=== PATIENT | female | born 1990 | race African-American/Black ===

== ENCOUNTER 2023-02-09 18:57 | Emergency (ER) | payer OTHER ==
[2023-02-09 19:22] LABS: BASOPHILS % (AUTO) 0.3 %; EOSINOPHILS # (AUTO) 0.7 10^3/uL (0.0-0.7); EOSINOPHILS % (AUTO) 11.4 %; HCT - HEMATOCRIT 34.4 % (37.0-47.0); LYMPHOCYTES % (AUTO) 46.2 %; MEAN CORPUSCULAR HEMOGLOBIN 27.5 pg (27.0-31.0); MONOCYTES # (AUTO) 0.4 10^3/uL (0.0-1.0); NEUTROPHILS # (AUTO) 2.3 10^3/uL (1.5-6.6); NEUTROPHILS % (AUTO) 36.1 %; PLT - PLATELET COUNT 559 10^3/uL (130-450); RED CELL DISTRIBUTION WIDTH 13.3 % (12.0-15.0); WHITE BLOOD COUNT 6.5 x10^3/uL (4.8-10.8)
[2023-02-09 19:29] LABS: BILIRUBIN,URINE NEGATIVE (NEGATIVE); GLUCOSE, URINE (UA) NEGATIVE (NEGATIVE); KETONES,URINE (UA) NEGATIVE (NEGATIVE); LEUKOCYTE ESTERASE, URINE NEGATIVE (NEGATIVE); NITRITE,URINE NEGATIVE (NEGATIVE); OCCULT BLOOD,URINE NEGATIVE (NEGATIVE); PROTEIN,URINE NEGATIVE (NEGATIVE); UROBILINOGEN,URINE 0.2 (NORMAL) E.U./dL (NORMAL)
[2023-02-09 19:31] LABS: CLARITY,URINE CLEAR (CLEAR); HCG UR QUAL NEGATIVE
[2023-02-09 19:36] LABS: ALBUMIN 4.2 g/dL (3.2-5.5); ALBUMIN/GLOBULIN RATIO 1.2 (1.0-2.2); BILIRUBIN,TOTAL 0.3 mg/dL (0.2-1.0); CALCIUM 9.6 mg/dL (8.5-10.3); CREATININE 0.9 mg/dL (0.6-1.3); POTASSIUM 3.5 mmol/L (3.5-4.5); TOTAL PROTEIN 7.6 g/dL (6.4-8.9)
[2023-02-09 20:49] VITALS: O2SAT 100
[2023-02-09] MEDS ORDERED: FAMOTIDINE 20 MG TABLET PO STA (21:00)
[2023-02-09] MEDS ORDERED: MAG HYDROX/AL HYDROX/SIMETH 30 ML UDC PO STA (21:00)
--- NOTE | 2023-02-09 21:01 | ED Physician Documentation ---
History of Present Illness - Stated complaint Stated Complaint: ABD PX/NAUSEA WHEN EATING - Chief complaint Chief Complaint: Abd Pain - History obtained from History obtained from: Patient - Additonal information Additional information: [id number] Previously healthy presents to the emergency department with left upper quadrant pain with associated nausea after eating for the past week that she describes as squeezing, gradual onset, waxing and waning in severity, improving with lying on her side and resting, worse with motion, without any other relieving factors. Patient had a green bowel movement today that was well formed and soft. Denies vomiting, diarrhea, urinary symptoms, fever, back pain.No past surgical history. Denies alcohol or heavy caffeine use. 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 - Present Medications Home Medications: Ambulatory Orders Medication Instructions Recorded Confirmed Famotidine [Pepcid] 20 mg PO BID PRN #30 tablet 02/09/23 - Allergies Allergies/Adverse Reactions: Allergies Allergy/AdvReac Type Severity Reaction Status Date / Time No Known Drug Allergies Allergy Verified 02/09/23 19:06 - Social History Does the pt smoke?: No Smoking Status: Never smoker Does the pt drink ETOH?: No Does the pt have substance abuse?: No - Immunizations Immunizations are current?: Yes - POLST Patient has POLST: No PD ED PE NORMAL - Vitals Vital signs reviewed: Yes - General General: Alert and oriented X 3, No acute distress, Well developed/nourished - HEENT HEENT: Atraumatic, PERRL, EOMI, Moist mucous membranes - Neck Neck: Supple, no meningeal sign - Cardiac Cardiac: RRR - Respiratory Respiratory: No respiratory distress, Clear bilaterally - Abdomen Abdomen: Non tender, Non distended, No organomegaly - Back Back: No CVA TTP - Derm Derm: Normal color, Warm and dry Results - Vitals Vitals: Vital Signs - 24 hr 02/09/23 02/09/23 19:02 20:46 Temperature 36.8 C Heart Rate 83 71 Respiratory 16 16 Rate Blood Pressure 149/116 H 136/71 H O2 Saturation 98 100 Oxygen O2 Source Room air - Labs Labs: Laboratory Tests 02/09/23 02/09/23 02/09/23 19:15 19:19 19:19 WBC 6.5 RBC 4.00 L Hgb 11.0 L Hct 34.4 L MCV 86.0 MCH 27.5 MCHC 32.0 RDW 13.3 Plt Count 559 H MPV 9.0 Neut # (Auto) 2.3 Lymph # (Auto) 3.0 Ray # (Auto) 0.4 Eos # (Auto) 0.7 Baso # (Auto) 0.0 Absolute Nucleated RBC 0.00 Nucleated RBC % 0.0 Sodium 136 Potassium 3.5 Chloride 103 Carbon Dioxide 28 Anion Gap 5.0 L BUN 10 Creatinine 0.9 Estimated GFR (MDRD) 72 L Glucose 104 Calcium 9.6 Total Bilirubin 0.3 AST 20 ALT 16 Alkaline Phosphatase 65 Total Protein 7.6 Albumin 4.2 Globulin 3.4 Albumin/Globulin Ratio 1.2 Lipase 48 Urine Color YELLOW Urine Clarity CLEAR Urine pH 6.0 Ur Specific [place] >=1.030 H Urine Protein NEGATIVE Urine Glucose (UA) NEGATIVE Urine Ketones NEGATIVE Urine Occult Blood NEGATIVE Urine Nitrite NEGATIVE Urine Bilirubin NEGATIVE Urine Urobilinogen 0.2 (NORMAL) Ur Leukocyte Esterase NEGATIVE Ur Microscopic Review NOT INDICATED Urine Culture Comments NOT INDICATED Urine HCG, Qual NEGATIVE PD Medical Decision Making - ED course ED course: 32-year-old woman presents to the emergency department with left upper abdominal pain after eating for the past week, likely stomach related. Lipase normal therefore not pancreatic. could also be intestinal upset but she is having normal BMs so volvulus/malro or diverticulitis unlikely. GI cocktail given with some relief. Pepcid sent to pharmacy. CBC, abdominal panel, urinalysis and hCG unremarkable aside from some anemia with hemoglobin of 11 which patient states is chronic related to her G6PD deficiency. Advised her to follow-up with her PCM. Return precautions given. Departure - Departure Disposition: 01 Home, Self Care Clinical Impression: Abdominal pain Condition: Good Instructions: ED Abdominal Pain Female Non-Specific Abdominal Pain Prescriptions: Famotidine [Pepcid] 20 mg PO BID PRN #30 tablet PRN Reason: Abdominal Pain Comments: You were seen in the emergency department for abdominal pain for the past week. Your lab work uncovered no issues except for some anemia with hemoglobin of 11. Electronic prescription for pepcid, a stomach medication was sent to [facility] in [email or web address]. Please follow-up with your PCM and return to the emergency department if you have any new or worsening symptoms or other concerns.
[2023-02-09] MEDS: diphenhydrAMINE ELIXIR 25 MG/10 ML UDC PO STA ×2 (21:11→21:16)
[2023-02-09 21:26] VITALS: BP 126/74
== END 2023-02-09 21:26 | disposition home or self-care (01) ==
LOC: ED 18:57
DX: R10.12 Left upper quadrant pain (principal)
CPT/HCPCS: 36415; 80053; 81003; 81025; 83690; 85025; 99283; 99284; A9270; 81001; 87086

== ENCOUNTER 2023-02-13 14:45 | Emergency (ER) | payer OTHER ==
[2023-02-13 15:17] LABS: BASOPHILS % (AUTO) 0.6 %; EOSINOPHILS # (AUTO) 0.6 10^3/uL (0.0-0.7); EOSINOPHILS % (AUTO) 9.7 %; HCT - HEMATOCRIT 34.2 % (37.0-47.0); MEAN CORPUSCULAR HEMOGLOBIN 27.6 pg (27.0-31.0); MEAN CORPUSCULAR HGB CONC 32.2 g/dL (32.0-36.0); MEAN CORPUSCULAR VOLUME 85.7 fL (81.0-99.0); MEAN PLATELET VOLUME 9.2 fL (7.9-10.8); MONOCYTES # (AUTO) 0.5 10^3/uL (0.0-1.0); MONOCYTES % (AUTO) 7.9 %; NEUTROPHILS # (AUTO) 3.2 10^3/uL (1.5-6.6); NEUTROPHILS % (AUTO) 50.6 %; PLT - PLATELET COUNT 506 10^3/uL (130-450); RED BLOOD COUNT 3.99 10^6/uL (4.20-5.40); RED CELL DISTRIBUTION WIDTH 13.3 % (12.0-15.0); WHITE BLOOD COUNT 6.3 x10^3/uL (4.8-10.8)
[2023-02-13 15:38] LABS: ALBUMIN 4.2 g/dL (3.2-5.5); ALBUMIN/GLOBULIN RATIO 1.2 (1.0-2.2); BILIRUBIN,TOTAL 0.3 mg/dL (0.2-1.0); CREATININE 0.8 mg/dL (0.6-1.3); POTASSIUM 3.6 mmol/L (3.5-4.5); TOTAL PROTEIN 7.6 g/dL (6.4-8.9)
[2023-02-13] MEDS ORDERED: MORPHINE 2 MG/ML CARPUJECT IVP STA ×2 (17:11→19:11)
[2023-02-13 17:24] LABS: BILIRUBIN,URINE NEGATIVE (NEGATIVE); GLUCOSE, URINE (UA) NEGATIVE (NEGATIVE); KETONES,URINE (UA) NEGATIVE (NEGATIVE); LEUKOCYTE ESTERASE, URINE NEGATIVE (NEGATIVE); NITRITE,URINE NEGATIVE (NEGATIVE); OCCULT BLOOD,URINE NEGATIVE (NEGATIVE); PROTEIN,URINE NEGATIVE (NEGATIVE); UROBILINOGEN,URINE 0.2 (NORMAL) E.U./dL (NORMAL)
[2023-02-13 17:25] LABS: CLARITY,URINE CLEAR (CLEAR); HCG UR QUAL NEGATIVE
--- NOTE | 2023-02-13 17:41 | ED Physician Documentation ---
History of Present Illness - Stated complaint Stated Complaint: ABD PX - Chief complaint Chief Complaint: Abd Pain - History obtained from History obtained from: Patient - History of Present Illness Pain level max: 8 Pain level now: 8 - Additonal information Additional information: Patient is a 32-year-old female who presents to the emergency department with 3 days of abdominal pain, left upper quadrant. Worse with eating and drinking. Nothing makes it better. Was seen here few days ago, started on Pepcid, but symptoms have continued to worsen. No fevers. No chills. No nausea or vomiting. No diarrhea or constipation. No recent travel. No recent antibiotics. Denies any possibility of . No dark stools or rectal bleeding. 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 - Present Medications Home Medications: Ambulatory Orders Medication Instructions Recorded Confirmed Famotidine [Pepcid] 20 mg PO BID PRN #30 tablet 02/09/23 02/13/23 Esomeprazole Magnesium [Nexium] 40 mg PO DAILY #30 cap 02/13/23 HYDROcod/ACETAM 5/325 [Snook 5/325] 1 - 2 ea PO Q6H PRN #14 tablet 02/13/23 Sucralfate [Carafate] 1 gm PO ACHS #60 tablet 02/13/23 - Allergies Allergies/Adverse Reactions: Allergies Allergy/AdvReac Type Severity Reaction Status Date / Time diphenhydramine AdvReac Unknown Verified 02/13/23 14:56 - Social History Does the pt smoke?: No Smoking Status: Never smoker Does the pt drink ETOH?: No Does the pt have substance abuse?: No - Immunizations Immunizations are current?: Yes - POLST Patient has POLST: No PD ED PE NORMAL - Vitals Vital signs reviewed: Yes - General General: Alert and oriented X 3, No acute distress - HEENT HEENT: PERRL, Moist mucous membranes - Neck Neck: Supple, no meningeal sign - Cardiac Cardiac: RRR - Respiratory Respiratory: No respiratory distress, Clear bilaterally - Abdomen Abdomen: Soft, Non distended, Other (Tender palpation left upper quadrant without peritoneal signs.) - Back Back: No CVA TTP, No spinal TTP - Derm Derm: Warm and dry - Extremities Extremities: No edema - Neuro Neuro: Alert and oriented X 3 - Psych Psych: Normal mood, Normal affect Results - Vitals Vitals: Vital Signs - 24 hr 02/13/23 02/13/23 02/13/23 14:58 15:02 17:02 Temperature 36.8 C 36.8 C 36.8 C Heart Rate 83 83 80 Respiratory 18 18 16 Rate Blood Pressure 145/81 H 145/81 H 130/80 O2 Saturation 100 100 100 02/13/23 19:51 Temperature Heart Rate 89 Respiratory 18 Rate Blood Pressure 149/102 H O2 Saturation 98 Oxygen O2 Source Room air - Labs Labs: Laboratory Tests 02/13/23 02/13/23 02/13/23 15:13 15:13 17:10 WBC 6.3 RBC 3.99 L Hgb 11.0 L Hct 34.2 L MCV 85.7 MCH 27.6 MCHC 32.2 RDW 13.3 Plt Count 506 H MPV 9.2 Neut # (Auto) 3.2 Lymph # (Auto) 2.0 [place] # (Auto) 0.5 Eos # (Auto) 0.6 Baso # (Auto) 0.0 Absolute Nucleated RBC 0.00 Nucleated RBC % 0.0 Sodium 136 Potassium 3.6 Chloride 102 Carbon Dioxide 29 Anion Gap 5.0 L BUN 8 Creatinine 0.8 Estimated GFR (MDRD) 100 Glucose 97 Calcium 10.0 Total Bilirubin 0.3 AST 26 ALT 25 Alkaline Phosphatase 67 Total Protein 7.6 Albumin 4.2 Globulin 3.4 Albumin/Globulin Ratio 1.2 Lipase 40 Urine Color YELLOW Urine Clarity CLEAR Urine pH 6.0 Ur Specific [place] 1.025 Urine Protein NEGATIVE Urine Glucose (UA) NEGATIVE Urine Ketones NEGATIVE Urine Occult Blood NEGATIVE Urine Nitrite NEGATIVE Urine Bilirubin NEGATIVE Urine Urobilinogen 0.2 (NORMAL) Ur Leukocyte Esterase NEGATIVE Ur Microscopic Review NOT INDICATED Urine Culture Comments NOT INDICATED Urine HCG, Qual NEGATIVE - Rads (name of study) CT abdomen pelvis Relevant Findings:: Final report received, See rad report PD Medical Decision Making - ED course Complexity details: reviewed results, re-evaluated patient, considered differential, d/w patient ED course: No acute findings on CT scan. She feels much better after pain medication. Tolerating p.o. without difficulty. No significant lab abnormalities. We will treat as gastritis versus peptic ulcer disease. We will place on Carafate, a PPI and pain medication for home. Patient is already on an H2 nicholas. We will have her follow-up with her doctor for endoscopy referral. Patient counseled regarding signs and symptoms for which I believe and urgent re-evaluation would be necessary. Patient with good understanding of and agreement to plan and is comfortable going home at this time This document was made in part using voice recognition software. While efforts are made to proofread this document, sound alike and grammatical errors may occur. Departure - Departure Disposition: Home, Self Care Clinical Impression: Abdominal pain Qualifiers: Abdominal location: unspecified location Qualified Code(s): R10.9 - Unspecified abdominal pain Gastritis Qualifiers: Gastritis type: unspecified gastritis Chronicity: acute Gastritis bleeding: without bleeding Qualified Code(s): K29.00 - Acute gastritis without bleeding Condition: Good Instructions: ED PUD Vs Gastritis Follow-Up: HEAVENLY DAVIDSON DO [Primary Care Provider] - Within 1 week Prescriptions: Sucralfate [Carafate] 1 gm PO ACHS #60 tablet Esomeprazole Magnesium [Nexium] 40 mg PO DAILY #30 cap HYDROcod/ACETAM 5/325 [Snook 5/325] 1 - 2 ea PO Q6H PRN #14 tablet PRN Reason: Pain Comments: Your prescriptions were sent to [facility] in [place]. Please continue the Pepcid as previously prescribed. We will add on Carafate, Nexium and pain medication for breakthrough pain. Make sure you are eating a very bland diet. Avoid spicy foods, fried foods, caffeine, alcohol, anti-inflammatory medication such as Motrin and Aleve. Please return if you worsen. Please follow-up with your doctor for further care. It is recommended that you have an endoscopy to further evaluate your symptoms. Your CT scan does not show any acute abnormalities today. I am prescribing a short course of narcotic pain medication for you. These are potentially dangerous and addictive medications that should be used carefully. These medications may constipate you. Take an [id number] stool softener (docusate) twice daily with plenty of water while taking these medications. If you go 24 hours without a bowel movement, take [id number] miralax, per package instructions. Do not drink or drive while taking these medications. If you received narcotic or sedating medications while in the emergency department, do not drive for 24 hours. Store this medication in a safe, secure place and out of reach of children. It is a violation of federal law to give or sell this medication to another person or to use in a manner other than prescribed. The ED will not refill narcotic prescriptions, including prescriptions lost or stolen. To dispose of unwanted medications: 1. [facility] at [address] [facility] in [place] has a medication drop box. They accept prescription medications (in pill form) Monday through Monday 9:00 a.m. to 5:00 p.m. 2. The [facility] [employer] accepts prescription medications (in pill form only) for disposal year round. Call for more information. 3. Contact the [facility] for the next [facility] sponsored prescription drug collection event. , [phone], or [phone]; Forms: PCP List Discharge Date/Time: 02/13/23 19:59
[2023-02-13] MEDS ORDERED: iohexoL-300 100 ML VIAL IVP ONE (18:32)
--- NOTE | 2023-02-13 18:43 | CT Report ---
PROCEDURE: ABDOMEN/PELVIS W INDICATIONS: L sided abd pain CONTRAST: 100mL Omni 300 TECHNIQUE: After the administration of IV contrast, 5 mm thick sections acquired from the diaphragms to the symp hysis. 5 mm thick coronal and sagittal reformats were acquired. For radiation dose reduction, the f ollowing was used: automated exposure control, adjustment of mA and/or kV according to patient size. COMPARISON: None. FINDINGS: Image quality: Excellent. Lung bases and heart: Unremarkable. Liver: No solid mass. Diffuse fatty liver infiltration can be seen. Gallbladder and biliary tree: Within normal limits. Spleen: No splenomegaly. Pancreas: No pancreatic ductal dilation. Adrenals: No adrenal nodule. Kidneys and ureters: No hydronephrosis. No renal cystic lesion which requires follow up. No solid mas s. Nonobstructing left-sided renal stones are seen, which measure up to 4 mm. Bowel and peritoneum: No bowel distension. No pathologic free fluid. A normal appendix is seen. Lymph nodes: No central or retroperitoneal adenopathy. Vessels: No infrarenal aortic aneurysm. PELVIS Reproductive organs: The uterus demonstrates an unremarkable appearance for age. No adnexal masses ar e seen. Bladder: No abnormal wall thickening, accounting for underdistension. Pelvic lymph nodes: No pelvic adenopathy by size criteria. Bones: No aggressive osseous abnormality. Other: No significant ventral or inguinal hernia. IMPRESSION: No imaging explanation is found for the patient's presenting symptoms. Negative for diverticulitis. No left-sided hydronephrosis is seen. No left adnexal abnormality is seen. Additional findings: Fatty liver infiltration Nonobstructing left-sided kidney stones. Reviewed by: Marcus Connelly MD on 02/13/2023 5:42 PM [email or web address] Approved by: Marcus Connelly MD on 02/13/2023 5:42 PM AKDT Station ID: [id number]
[2023-02-13] MEDS ORDERED: HYDROcod/ACETAM 5/325 MG TABLET PO STA (19:11)
[2023-02-13] MEDS ORDERED: ONDANSETRON ODT 4 MG TABLET TL STA (19:49)
[2023-02-13 20:00] VITALS: BP 149/102; O2SAT 98
== END 2023-02-13 19:59 | disposition home or self-care (01) ==
LOC: ED 14:45
DX: K29.00 Acute gastritis without bleeding (principal)
CPT/HCPCS: 36415; 74177; 80053; 81003; 81025; 83690; 85025; 96374; 96376; 99283; 99284; A9270; Q0162; Q9967; 81001; 87086